=== PATIENT | male | born 2000 | race Caucasian/White ===

== ENCOUNTER → 2021-09-16 | Outpatient (CLI) | payer BC ==
[2021-09-16 13:56] LABS: HEMOGLOBIN 15.2 gm/dl (14.0-17.5); RED BLOOD COUNT 5.26 M/UL (4.20-5.50); WHITE BLOOD COUNT 5.6 K/UL (4.5-11.0)
[2021-09-17 08:51] LABS: BUN/CREATININE RATIO 18 (0-10)
[2021-09-18 07:11] LABS: VITAMIN D, 25-HYDROXY 48.6 ng/mL (30.0-100.0)
[2021-09-18 08:14] LABS: CHOLESTEROL, TOTAL 209 mg/dL (100-199); HDL CHOLESTEROL 48 mg/dL (>39); LDL CHOLESTEROL CALC 149 mg/dL (0-99); LDL/HDL RATIO 3.1 ratio (0.0-3.6); T. CHOL/HDL RATIO 4.4 ratio (0.0-5.0); TRIGLYCERIDES 65 mg/dL (0-149)
== END ==
LOC: LAB 13:34
PROVIDERS: Nurse Practitioner
DX: Z13.6 Encounter for screening for cardiovascular disorders (principal); Z13.29 Encounter for screening for other suspected endocrine disorder; E55.9 Vitamin D deficiency, unspecified
CPT/HCPCS: 80053; 80061; 84439; 84443; 84481; 85025